=== PATIENT | female | born 1955 | race Caucasian/White ===

== ENCOUNTER 2016-10-24 14:18 | Emergency (ER) | payer MEDICAID ==
[~2016-10-24] VITALS: Ht 167.6 cm; Wt 65.0 kg
[~2016-10-24 14:18] MED LIST: HYDR-3498 PO; IBUP-1542 PO; METH500T PO; NAPR-688 PO
[2016-10-24 14:22] VITALS: Ht 167.6 cm; Wt 65.0 kg
[2016-10-24] MEDS ORDERED: KETOROLAC 30 MG INJ IM STA (15:39)
[2016-10-24] MEDS ORDERED: NAPR-688 PO (15:40)
[2016-10-24] MEDS ORDERED: CYCL-319 PO (15:40)
--- NOTE | 2016-10-24 19:24 | ERD ---
ER Documentation Chief Complaint Date/Time DATE: 10/24/16 TIME: 19:22 Chief Complaint lower back pain x 2 weeks HPI This is a 61-year-old female with hypertension high cholesterol presenting to the emergency department complaining of left lumbar back pain that is described as achy, moderate in severity and increased with movement for the past 2 weeks. Patient denies any saddle anesthesia, fevers, bladder or bowel incontinence. She denies any hematuria. Patient states that she has not taken medications today. ROS All systems reviewed and are negative except as per history of present illness. Medications Home Meds Active Scripts Cyclobenzaprine Hcl* (Cyclobenzaprine Hcl*) 10 Mg Tablet, 10 MG PO TID, #20 TAB Prov:LIZET GONZALES PA-C 10/24/16 Naproxen* (Naproxen*) 500 Mg Tablet, 500 MG PO BID, #30 TAB Prov:LIZET GONZALES PA-C 10/24/16 Methocarbamol* (Robaxin*) 500 Mg Tab, 500 MG PO Q8, #20 TAB Prov:AZUL GONZALEZ DO 08/22/15 Hydrocodone Bit-Acetaminophen* ([place]*) 5-325 Mg Tab, 1 TAB PO Q4H, #20 TAB Prov:AZUL GONZALEZ DO 08/22/15 Naproxen* (Naproxen*) 500 Mg Tablet, 500 MG PO BID, #20 TAB Prov:AZUL GONZALEZ DO 08/22/15 Ibuprofen* (Ibuprofen*) 600 Mg Tablet, 600 MG PO Q6, #20 TAB Prov:NAPOLEON AGUILAR PA-C 08/08/15 Allergies Allergies: Coded Allergies: No Known Allergy (Unverified , 08/22/15) PMhx/Soc History of Surgery: Yes (HYSTERECTOMY, BREAST SURGERY) Anesthesia Reaction: No Hx Neurological Disorder: No Hx Respiratory Disorders: No Hx Cardiac Disorders: Yes (HTN) Hx Psychiatric Problems: No Hx Miscellaneous Medical Probl: No Hx Alcohol Use: No Hx Substance Use: No Hx Tobacco Use: No Physical Exam Vitals Vital Signs Date Time Temp Pulse Resp B/P Pulse Ox O2 Delivery O2 Flow Rate FiO2 10/24/16 14:22 99.1 84 18 160/73 98 Physical Exam GENERAL: WD/WN, in no apparent distress, non-toxic appearing HENT: NC/AT EYES: Conjunctiva normal NECK: Supple PULM: Normal labored breathing CV: Good capillary refill GI: Non-distended, no guarding BACK: no deformities noted, normal spinal curvature, TTP on lleft umbar region, non-tender on spine midline, EXT: No clubbing, cyanosis, or edema NEURO: Moves on all fours, sensation intact, normal gait SKIN: intact PSYCH: Normal mood Results 24 hrs Current Medications Medications (Trade) Dose Ordered Sig/Hans Route PRN Reason Start Time Stop Time Status Last Admin Dose Admin Ketorolac Tromethamine (Toradol) 30 mg ONCE STAT IM 10/24/16 15:39 10/24/16 15:40 DC 10/24/16 15:56 Procedures/MDM This is a 61-year-old female with history of hypertension and high cholesterol presents to the ER with lumbar back pain and muscle spasms, low suspicion for spinal abscess, vertebral fracture, cauda equina syndrome, spinal stenosis due to physical examination. Toradol was given to the patient in the ED. Patient is neurovascularly intact. Stable discharge for home. prescriptions naproxen and Flexeril was given to patient, discussed to return to the ED if not improving as expected or follow-up with a primary care physician. Patient understood and agreed with this plan. Departure Diagnosis: Primary Impression: Lower back pain Additional Impression: Muscle spasm Condition: Stable Patient Instructions: Relieving Back Pain, Back Exercises, Lumbar, Back Pain ( Acute Or Chronic) Additional Instructions: FOLLOW UP WITH YOUR PRIMARY CARE PHYSICIAN TOMORROW.Return to this facility if you are not improving as expected. Take all medicines as directed. You have been given a medicine which may cause drowsiness.DO NOT DRIVE OR OPERATE DANGEROUS MACHINERY while taking this medicine! Return to this facility if you are not improving as expected. LIZET GONZALES PA-C October 24, 2016 19:24
== END 2016-10-24 16:10 | disposition home or self-care (01) ==
LOC: FTE 14:18
DX: M54.5 Low back pain (principal); M62.830 Muscle spasm of back; I10 Essential (primary) hypertension
CPT/HCPCS: 96372; J1885; Z7502